=== PATIENT | male | born 1975 | race Caucasian/White ===

== ENCOUNTER 2017-02-15 12:10 | Emergency (ER) | payer OTHER ==
--- NOTE | 2017-02-15 15:28 | DIAGNOSTIC IMAGING REPORT ---
PROCEDURE: CT ABD/PELVIS WITH CONTRAST INDICATION: Right abdominal pain. Nausea. TECHNIQUE: 125 ml of Isovue 300 were injected intravenously and axial images were obtained of the entire abdomen and pelvis with sagittal and coronal reformations. COMPARISON: . FINDINGS: ABDOMEN: Gallbladder is contracted (with moderate ingested material in the stomach). Liver, spleen, pancreas, kidneys, and aorta are normal. Bowel pattern is normal, including appendix. PELVIS: Mild enlargement prostate (4.2 cm) with central dystrophic calcification). Pelvic structures are otherwise normal. No evidence of free fluid. IMPRESSION: 1. Mild enlargement prostate (incidental finding). 2. Normal appendix. 3. Otherwise negative CT abdomen and pelvis. 4. Findings discussed with ASHWIN Jc. All CT scans at this facility use dose modulation, iterative reconstruction, and/or weight-based dosing when appropriate to reduce radiation dose to as low as reasonably achievable.
--- NOTE | 2017-02-15 16:30 | ED ORDER SUMMARY ---
..... Patient: GELACIO WOODS JR OrderSheet [facility] VisitID: [id number] [place] [address] 41y, M Registration Date/Time: 02/15/2017 ORDER SHEET Weight: 99.7 kg (stated) Allergies: No Known Drug Allergy GENERAL ORDERS: CBC w Diff Urgent (13:45 02/15/2017 KKnebel R.N. per protocol) (Ack 13:46 ALawrence ER Tech1) (13:54 KKnebel R.N.) CMP Urgent (13:45 02/15/2017 KKnebel R.N. per protocol) (Ack 13:46 ALawrence ER Tech1) (13:54 KKnebel R.N.) UA-Culture if indicated Urgent (13:45 02/15/2017 KKnebel R.N. per protocol) (Ack 13:46 ALawrence ER Tech1) (13:54 KKnebel R.N.) PT with INR Urgent (13:45 02/15/2017 KKnebel R.N. per protocol) (Ack 13:46 ALawrence ER Tech1) (13:54 KKnebel R.N.) Amylase Urgent (13:45 02/15/2017 KKnebel R.N. per protocol) (Ack 13:46 ALawrence ER Tech1) (13:54 KKnebel R.N.) Lipase Urgent (13:45 02/15/2017 KKnebel R.N. per protocol) (Ack 13:46 ALawrence ER Tech1) (13:54 KKnebel R.N.) NPO (13:45 02/15/2017 KKnebel R.N. per protocol) (Ack 13:46 ALawrence ER Tech1) (13:46 ALawrence ER Tech1) CT Abd/Pel w Cont (No) (N/A) Urgent (14:33 02/15/2017 SThom A.R.N.P.) (Ack 14:34 JASENoerner) (15:11 JASENoerner) US Scrotum/Testicular (hx of R ing hernia; RLQ pain) Urgent (15:49 02/15/2017 SThom A.R.N.P.) ([facility] 15:51 Shahzad) MEDICATION ORDERS: IV FLUIDS: IV NS : initial bolus 1000 mL (1000 mL/hr), then 1000 mL/hr (NOW) (13:44 02/15/2017 KKnebel R.N. per protocol) (13:55 KKnebel R.N.) IV Saline Lock (13:45 02/15/2017 KKnebel R.N. per protocol) (13:54 KKnebel R.N.) Ketorolac IV 30 mg (NOW) (14:03 02/15/2017 SThom A.R.N.P.) (14:20 KKnebel R.N.) Zofran IV 4 mg (NOW) (14:03 02/15/2017 SThom A.R.N.P.) (14:20 KKnebel R.N.) ORDER SHEET NOTES: [Electronically signed by Landy Connelly A.R.N.P. (18:16 02/15/2017)] [Electronically signed by Gwendolyn Trevino R.N. (21:12 02/15/2017)] [Electronically locked/signed by Gwendolyn Trevino R.N. (21:12 02/15/2017)]
--- NOTE | 2017-02-15 16:30 | ED CLINICAL REPORT ---
Clinical Report - Physicians/Mid Levels [facility] [address] [place] [address] 02/15/2017 12:15 Patient: GELACIO WOODS JR Arrived- By private vehicle. Historian- patient. HISTORY OF PRESENT ILLNESS Chief Complaint: ABDOMINAL PAIN. At its maximum, severity described as 8 / 10. This started yesterday and is still present. It is described as "pain" and it is described as located in the right lower quadrant. The patient has had nausea. No diarrhea. Similar symptoms previously: None. Recent medical care: Not recently seen/assessed. REVIEW OF SYSTEMS No constipation, hematemesis, difficulty with urination, pain with urination or fever. No chest pain, cough or chills. Last bowel movement: today. PAST HISTORY See nurses notes. inguinal hernia. No history of gallstones, bowel obstruction, hypertension or diabetes mellitus. Has not had urinary calculi. Surgeries: Colonoscopy. Shoulder surgery. SOCIAL HISTORY Former smoker. Occasional alcohol use. No drug use. ADDITIONAL NOTES The nursing notes have been reviewed. PHYSICAL EXAM Vital Signs: 02/15/2017 13:38 BP: 133/74. HR: 74. RR: 16. O2 saturation: 98%. Temp: 98.2 F. Pain level now: 6/10. Have been reviewed and appear to be correct. Appearance: Alert. Oriented X3. No acute distress. Eyes: Pupils equal, round and reactive to light. Eyes normal inspection. Neck: Normal inspection. Neck supple. CVS: Normal heart rate and rhythm. Heart sounds normal. Respiratory: No respiratory distress. Breath sounds normal. Abdomen: Moderate tenderness in the right lower quadrant. No guarding, rebound tenderness or Hui's sign present. No rebound tenderness, distention or guarding. The bowel sounds are not abnormal. : Normal genitalia and genitalia. Mild right-sided and reducible hernia mass with tenderness. No urethral discharge or genital lesion. Skin: Skin warm and dry. Normal skin color. Normal skin turgor. Extremities: Extremities exhibit normal ROM. Neuro: Oriented X 3. LABS, X-RAYS, AND EKG Abdominal CT: No acute disease. Scrotal Sonogram: . There is a right inguinal hernia with a 10 mm break in the fascia. This fat-containing hernia reduces with pressure. IMPRESSION: 1. Right inguinal hernia with a 10 mm break in the fascia. Laboratory Tests: Laboratory tests have been ordered, with results reviewed and considered in the medical decision making process. UA-Culture if indicated: (FABI: 02/15/2017 13:50) ( [facility] 02/15/2017 14:41) Final results Test Result Flag Units (Reference) URINE COLOR YELLOW URINE APPEARANCE SL CLOUDY URINE GLUCOSE NEGATIVE (NEGATIVE) URINE BILIRUBIN NEGATIVE (NEGATIVE) URINE KETONE NEGATIVE (NEGATIVE) URINE SPECIFIC GRAVITY 1.020 (1.010-1.030) URINE PH 7.0 (5.0-8.0) URINE PROTEIN NEGATIVE (NEGATIVE) URINE UROBILINOGEN 1.0 EU/dL (0.2-1.0) URINE NITRITE NEGATIVE (NEGATIVE) URINE BLOOD NEGATIVE (NEGATIVE) URINE LEUK ESTERASE NEGATIVE (NEGATIVE) URINE RBC NONE SEEN rbc/hpf (0-1) URINE WBC NONE SEEN wbc/hpf (0-1) URINE EPITHELIAL CELLS NONE SEEN EPI/hpf (0-5) URINE BACTERIA NONE SEEN (NONE SEEN) URINE COMMENT CULT NOT INDICATED 3+ AMORPHOUS CRYSTALSURINE CULTURES ARE SET-UP BASED ON THE FOLLOWING CRITERIA:POSITIVE NITRITEPOSITIVE LEUKOCYTE ESTERASEGREATER THAN 10 WHITE BLOOD CELLSMODERATE (2+) OR GREATER BACTERIA CBC w Diff: (FABI: 02/15/2017 13:50) ( [facility] 02/15/2017 14:03) Final results Test Result Flag Units (Reference) WHITE BLOOD COUNT 9.9 K/uL (4.5-11.5) RED BLOOD COUNT 4.76 M/uL (4.50-5.90) HEMOGLOBIN 14.6 gm/dL (13.5-17.5) HEMATOCRIT 42.7 % (41.0-53.0) MEAN CELL VOLUME 90 fL (80-100) MEAN CORPUSCULAR HGB 31 pg (26-34) MEAN CORPUSCULAR HGB CONC 34 g/dL (31-37) RED CELL DISTRIBUTION WIDTH 13.4 % (11.6-14.8) PLATELET COUNT 338 K/uL (150-400) NEUTROPHIL % 69.0 % (50-75) LYMPH % 22.9 L % (25-40) MONO % 4.7 % (3-14) EOSINOPHIL % 2.7 % (0-4) BASOPHIL % 0.7 % (0-2) PT with INR: (FABI: 02/15/2017 13:50) ( [facility] 02/15/2017 14:44) Final results Test Result Flag Units (Reference) INR 0.9 (0.8-1.2) Low Intensity Therapy: INR 1.5-2.0 PT range 18.5-23.1Mod.Intensity Therapy: INR 2.0-3.0 PT range 23.1-31.5High Intensity Therapy: INR 2.5-3.5 PT range 27.4-35.5High Intensity Therapy 2: INR 3.0-4.0 PT range 31.5-39.3 CMP: (FABI: 02/15/2017 13:50) ( [facility] 02/15/2017 14:44) Final results Test Result Flag Units (Reference) GLUCOSE 103 mg/dL (70-110) BUN 19 H mg/dL (7-18) CREATININE 1.1 mg/dL (0.6-1.3) Estimated GFR >60 mL/min Estimated GFR- >60 mL/min Note: Persistent reduction over 3 months in eGFR<60 mL/min/1.73 m2 defines CKD. Patients with eGFR values>=60 mL/min/1.73 m2 may also have CKD if evidence ofpersistent proteinuria. Additional information may be foundat www.kidney.org. SODIUM 140 mmol/L (136-145) POTASSIUM 3.8 mmol/L (3.5-5.1) CHLORIDE 105 mmol/L (98-107) CARBON DIOXIDE 24 mmol/L (21-32) CALCIUM 8.6 mg/dL (8.5-10.1) TOTAL PROTEIN 7.2 g/dL (6.4-8.2) ALBUMIN 3.7 g/dL (3.3-5.0) BILIRUBIN, TOTAL 0.3 mg/dL (0.0-1.0) ALKALINE PHOSPHATASE 79 U/L (46-116) AST (SGOT) 24 U/L (15-37) ALT (SGPT) 49 U/L (12-78) LIPASE 99 U/L (73-393) AMYLASE 36 U/L (25-115) . PROGRESS AND PROCEDURES Course of Care: RLQ tenderness with unclear etiology. Discussed findings so far w/ pt-comfortable with discharge at this time. No peritoneal signs. Patient is stable. Patient and family counseled in person regarding the patient's condition, test results, diagnosis and need for follow-up. Disposition: Discharged. Condition: stable. CLINICAL IMPRESSION Acute right lower quadrant abdominal pain of unknown cause. Right inguinal hernia. No recurrent hernia, obstruction or gangrene. Amorphous crystals in urine. INSTRUCTIONS Do not work tomorrow. Drink plenty of fluids. (Although I do not have a definite answer as to the WHAT and WHY of your pain, we can be reassured that your hernia is not needing immediate surgery, that your appendix is ok, and that no evidence of serious infection. Possible causes would be stone that doesn't show up, as well as musculoskeletal pain or intestinal spasm. Return to ER if symptoms markedly worsen, you develop a fever over 100, or new symptoms come on.). Warnings: Further evaluation is necessary. GENERAL WARNINGS: Return or contact your physician immediately if your condition worsens or changes unexpectedly, if not improving as expected, or if other problems arise. Prescription Medications: Flomax 0.4 mg: take 1 orally every 24 hours. Take dose every day 30 minutes after the same meal. Dispense ten (10). No refills. Follow-up: Follow up with your doctor in about one week. Understanding of the discharge instructions verbalized by patient. Follow-up with: Rudi Rossi MD, General Surgeon, , [facility], [address] [place] [address] Follow up even if well. Call for the next available appointment. (Electronically signed by Landy Connelly A.R.N.P. 02/15/2017 18:16)
--- NOTE | 2017-02-15 16:30 | ED CLINICAL REPORT ---
Clinical Report - Physicians/Mid Levels [facility] [address] [place] [address] 02/15/2017 12:15 Patient: GELACIO WOODS JR Arrived- By private vehicle. Historian- patient. HISTORY OF PRESENT ILLNESS Chief Complaint: ABDOMINAL PAIN. At its maximum, severity described as 8 / 10. This started yesterday and is still present. It is described as "pain" and it is described as located in the right lower quadrant. The patient has had nausea. No diarrhea. Similar symptoms previously: None. Recent medical care: Not recently seen/assessed. REVIEW OF SYSTEMS No constipation, hematemesis, difficulty with urination, pain with urination or fever. No chest pain, cough or chills. Last bowel movement: today. PAST HISTORY See nurses notes. inguinal hernia. No history of gallstones, bowel obstruction, hypertension or diabetes mellitus. Has not had urinary calculi. Surgeries: Colonoscopy. Shoulder surgery. SOCIAL HISTORY Former smoker. Occasional alcohol use. No drug use. ADDITIONAL NOTES The nursing notes have been reviewed. PHYSICAL EXAM Vital Signs: 02/15/2017 13:38 BP: 133/74. HR: 74. RR: 16. O2 saturation: 98%. Temp: 98.2 F. Pain level now: 6/10. Have been reviewed and appear to be correct. Appearance: Alert. Oriented X3. No acute distress. Eyes: Pupils equal, round and reactive to light. Eyes normal inspection. Neck: Normal inspection. Neck supple. CVS: Normal heart rate and rhythm. Heart sounds normal. Respiratory: No respiratory distress. Breath sounds normal. Abdomen: Moderate tenderness in the right lower quadrant. No guarding, rebound tenderness or Hui's sign present. No rebound tenderness, distention or guarding. The bowel sounds are not abnormal. : Normal genitalia and genitalia. Mild right-sided and reducible hernia mass with tenderness. No urethral discharge or genital lesion. Skin: Skin warm and dry. Normal skin color. Normal skin turgor. Extremities: Extremities exhibit normal ROM. Neuro: Oriented X 3. LABS, X-RAYS, AND EKG Abdominal CT: No acute disease. Scrotal Sonogram: . There is a right inguinal hernia with a 10 mm break in the fascia. This fat-containing hernia reduces with pressure. IMPRESSION: 1. Right inguinal hernia with a 10 mm break in the fascia. Laboratory Tests: Laboratory tests have been ordered, with results reviewed and considered in the medical decision making process. UA-Culture if indicated: (FABI: 02/15/2017 13:50) ( [facility] 02/15/2017 14:41) Final results Test Result Flag Units (Reference) URINE COLOR YELLOW URINE APPEARANCE SL CLOUDY URINE GLUCOSE NEGATIVE (NEGATIVE) URINE BILIRUBIN NEGATIVE (NEGATIVE) URINE KETONE NEGATIVE (NEGATIVE) URINE SPECIFIC GRAVITY 1.020 (1.010-1.030) URINE PH 7.0 (5.0-8.0) URINE PROTEIN NEGATIVE (NEGATIVE) URINE UROBILINOGEN 1.0 EU/dL (0.2-1.0) URINE NITRITE NEGATIVE (NEGATIVE) URINE BLOOD NEGATIVE (NEGATIVE) URINE LEUK ESTERASE NEGATIVE (NEGATIVE) URINE RBC NONE SEEN rbc/hpf (0-1) URINE WBC NONE SEEN wbc/hpf (0-1) URINE EPITHELIAL CELLS NONE SEEN EPI/hpf (0-5) URINE BACTERIA NONE SEEN (NONE SEEN) URINE COMMENT CULT NOT INDICATED 3+ AMORPHOUS CRYSTALSURINE CULTURES ARE SET-UP BASED ON THE FOLLOWING CRITERIA:POSITIVE NITRITEPOSITIVE LEUKOCYTE ESTERASEGREATER THAN 10 WHITE BLOOD CELLSMODERATE (2+) OR GREATER BACTERIA CBC w Diff: (FABI: 02/15/2017 13:50) ( [facility] 02/15/2017 14:03) Final results Test Result Flag Units (Reference) WHITE BLOOD COUNT 9.9 K/uL (4.5-11.5) RED BLOOD COUNT 4.76 M/uL (4.50-5.90) HEMOGLOBIN 14.6 gm/dL (13.5-17.5) HEMATOCRIT 42.7 % (41.0-53.0) MEAN CELL VOLUME 90 fL (80-100) MEAN CORPUSCULAR HGB 31 pg (26-34) MEAN CORPUSCULAR HGB CONC 34 g/dL (31-37) RED CELL DISTRIBUTION WIDTH 13.4 % (11.6-14.8) PLATELET COUNT 338 K/uL (150-400) NEUTROPHIL % 69.0 % (50-75) LYMPH % 22.9 L % (25-40) MONO % 4.7 % (3-14) EOSINOPHIL % 2.7 % (0-4) BASOPHIL % 0.7 % (0-2) PT with INR: (FABI: 02/15/2017 13:50) ( [facility] 02/15/2017 14:44) Final results Test Result Flag Units (Reference) INR 0.9 (0.8-1.2) Low Intensity Therapy: INR 1.5-2.0 PT range 18.5-23.1Mod.Intensity Therapy: INR 2.0-3.0 PT range 23.1-31.5High Intensity Therapy: INR 2.5-3.5 PT range 27.4-35.5High Intensity Therapy 2: INR 3.0-4.0 PT range 31.5-39.3 CMP: (FABI: 02/15/2017 13:50) ( [facility] 02/15/2017 14:44) Final results Test Result Flag Units (Reference) GLUCOSE 103 mg/dL (70-110) BUN 19 H mg/dL (7-18) CREATININE 1.1 mg/dL (0.6-1.3) Estimated GFR >60 mL/min Estimated GFR- >60 mL/min Note: Persistent reduction over 3 months in eGFR<60 mL/min/1.73 m2 defines CKD. Patients with eGFR values>=60 mL/min/1.73 m2 may also have CKD if evidence ofpersistent proteinuria. Additional information may be foundat www.kidney.org. SODIUM 140 mmol/L (136-145) POTASSIUM 3.8 mmol/L (3.5-5.1) CHLORIDE 105 mmol/L (98-107) CARBON DIOXIDE 24 mmol/L (21-32) CALCIUM 8.6 mg/dL (8.5-10.1) TOTAL PROTEIN 7.2 g/dL (6.4-8.2) ALBUMIN 3.7 g/dL (3.3-5.0) BILIRUBIN, TOTAL 0.3 mg/dL (0.0-1.0) ALKALINE PHOSPHATASE 79 U/L (46-116) AST (SGOT) 24 U/L (15-37) ALT (SGPT) 49 U/L (12-78) LIPASE 99 U/L (73-393) AMYLASE 36 U/L (25-115) . PROGRESS AND PROCEDURES Course of Care: RLQ tenderness with unclear etiology. Discussed findings so far w/ pt-comfortable with discharge at this time. No peritoneal signs. Patient is stable. Patient and family counseled in person regarding the patient's condition, test results, diagnosis and need for follow-up. Disposition: Discharged. Condition: stable. CLINICAL IMPRESSION Acute right lower quadrant abdominal pain of unknown cause. Right inguinal hernia. No recurrent hernia, obstruction or gangrene. Amorphous crystals in urine. INSTRUCTIONS Do not work tomorrow. Drink plenty of fluids. (Although I do not have a definite answer as to the WHAT and WHY of your pain, we can be reassured that your hernia is not needing immediate surgery, that your appendix is ok, and that no evidence of serious infection. Possible causes would be stone that doesn't show up, as well as musculoskeletal pain or intestinal spasm. Return to ER if symptoms markedly worsen, you develop a fever over 100, or new symptoms come on.). Warnings: Further evaluation is necessary. GENERAL WARNINGS: Return or contact your physician immediately if your condition worsens or changes unexpectedly, if not improving as expected, or if other problems arise. Prescription Medications: Flomax 0.4 mg: take 1 orally every 24 hours. Take dose every day 30 minutes after the same meal. Dispense ten (10). No refills. Follow-up: Follow up with your doctor in about one week. Understanding of the discharge instructions verbalized by patient. Follow-up with: Rudi Rossi MD, General Surgeon, , [facility], [address] [place] [address] Follow up even if well. Call for the next available appointment. (Electronically signed by Landy Connelly A.R.N.P. 02/15/2017 18:16)
--- NOTE | 2017-02-15 16:30 | ED ORDER SUMMARY ---
..... Patient: GELACIO WOODS JR OrderSheet [facility] VisitID: [id number] [place] [address] 41y, M Registration Date/Time: 02/15/2017 ORDER SHEET Weight: 99.7 kg (stated) Allergies: No Known Drug Allergy GENERAL ORDERS: CBC w Diff Urgent (13:45 02/15/2017 KKnebel R.N. per protocol) (Ack 13:46 ALawrence ER Tech1) (13:54 KKnebel R.N.) CMP Urgent (13:45 02/15/2017 KKnebel R.N. per protocol) (Ack 13:46 ALawrence ER Tech1) (13:54 KKnebel R.N.) UA-Culture if indicated Urgent (13:45 02/15/2017 KKnebel R.N. per protocol) (Ack 13:46 ALawrence ER Tech1) (13:54 KKnebel R.N.) PT with INR Urgent (13:45 02/15/2017 KKnebel R.N. per protocol) (Ack 13:46 ALawrence ER Tech1) (13:54 KKnebel R.N.) Amylase Urgent (13:45 02/15/2017 KKnebel R.N. per protocol) (Ack 13:46 ALawrence ER Tech1) (13:54 KKnebel R.N.) Lipase Urgent (13:45 02/15/2017 KKnebel R.N. per protocol) (Ack 13:46 ALawrence ER Tech1) (13:54 KKnebel R.N.) NPO (13:45 02/15/2017 KKnebel R.N. per protocol) (Ack 13:46 ALawrence ER Tech1) (13:46 ALawrence ER Tech1) CT Abd/Pel w Cont (No) (N/A) Urgent (14:33 02/15/2017 SThom A.R.N.P.) (Ack 14:34 JASENoerner) (15:11 JASENoerner) US Scrotum/Testicular (hx of R ing hernia; RLQ pain) Urgent (15:49 02/15/2017 SThom A.R.N.P.) ([facility] 15:51 Shahzad) MEDICATION ORDERS: IV FLUIDS: IV NS : initial bolus 1000 mL (1000 mL/hr), then 1000 mL/hr (NOW) (13:44 02/15/2017 KKnebel R.N. per protocol) (13:55 KKnebel R.N.) IV Saline Lock (13:45 02/15/2017 KKnebel R.N. per protocol) (13:54 KKnebel R.N.) Ketorolac IV 30 mg (NOW) (14:03 02/15/2017 SThom A.R.N.P.) (14:20 KKnebel R.N.) Zofran IV 4 mg (NOW) (14:03 02/15/2017 SThom A.R.N.P.) (14:20 KKnebel R.N.) ORDER SHEET NOTES: [Electronically signed by Landy Connelly A.R.N.P. (18:16 02/15/2017)] [Electronically signed by Gwendolyn Trevino R.N. (21:12 02/15/2017)] [Electronically locked/signed by Gwendolyn Trevino R.N. (21:12 02/15/2017)]
--- NOTE | 2017-02-15 16:30 | ED NURSING NOTES ---
Clinical Report - Nurses [facility] [place] [address] 02/15/2017 12:15 Patient: GELACIO WOODS JR TRIAGE Triage time 12:27. Acuity: LEVEL 3. Chief Complaint: ABDOMINAL PAIN and NAUSEA. Alert. No acute distress. MARIS COMA SCORE: [place] Coma Scale: 15- eyes open spontaneously (4); best verbal response- oriented x 4 (5); best motor response- obeys commands (6). --12:35 Beverley Cali R.N. 12:27 02/15/17. BP: 128/91. HR: 84. RR: 16. O2 saturation: 99% on room air. Temp: 98.5 F (oral). Pain level now: 0/10. --12:35 Beverley Cali R.N. Weight: 99.7 kg stated. Height/Length: 66 inches. BMI: 35.5. --12:31 Beverley Cali R.N. Medications None. --12:29 Beverley Cali R.N. Medication/allergy information source: the patient. --12:35 Beverley Cali R.N. Allergies No Known Drug Allergy. --12:29 Beverley Cali R.N. History Arrived by private vehicle. Historian: patient. Accompanied by family. Primary physician (Octavio's office). This started yesterday. Describes the quality as dull and ( intermittent). Relates location as in the right lower quadrant. Notes pain level as 0/10 on arrival and 6/10 at maximum. Reports last BM was today. Last oral intake by patient was (eat-0600; drink-1145). SOCIAL HX: Former smoker. Occasional alcohol use. No drug use. FALL RISK ASSESSMENT: Fall risk assessment completed. No fall risk identified. FUNCTIONAL ASSESSMENT: Functional assessment: no impairments noted. LEARNING NEEDS ASSESSMENT: The learning needs assessment revealed no barriers. --12:35 Beverley Cali R.N. PROBLEMS: no known problems. ADDITIONAL SURGERIES: Colonoscopy. Shoulder Surgery. --12:30 Beverley Cali R.N. Assessment GENERAL / NEURO / PSYCH: Alert. Oriented X 4. Appears in no acute distress. Patient appears calm and cooperative. RESPIRATORY: Respirations not labored. SKIN: Skin is warm and dry. --12:35 Beverley Cali R.N. Interventions <<STRICKEN ENTRY-- ID band on patient. To treatment room. --12:35 Beverley Cali R.N. --END STRIKE>> Correction --12:35 Beverley Cali R.N. ID band on patient. To waiting room. --12:35 Beverley Cali R.N. PHYSICAL ASSESSMENT Ambulatory to room. GENERAL / NEURO / PSYCH: Alert. Oriented X 4. Appears in pain. RESPIRATORY: Respirations not labored. CVS: Capillary refill less than 2 seconds. GI / : Abdomen soft. Abdominal tenderness in the right lower quadrant. SKIN: Skin is warm and dry. --13:42 Gwendolyn Trevino R.N. NURSING PROGRESS NOTES Pulse oximeter and NIBP monitor placed on patient; monitor alarms on. Patient gowned. Head of bed elevated. Patient identifiers checked. Call light placed in reach. Side rails up x 1. Bed placed in lowest position. Brakes of bed on. --13:43 Gwendolyn Trevino R.N. 13:38 02/15/17. BP: 133/74. HR: 74. RR: 16. O2 saturation: 98%. Temp: 98.2 F. Pain level now: 03/04. --13:43 Gwendolyn Trevino R.N. 13:54 02/15/2017 Site #1 started via IV in the right forearm with an 20g angiocath, with aseptic technique and good blood return; one attempt. Blood drawn: rainbow set. Labeled in the presence of the patient and sent to the lab. Saline lock flushed with 10 mL saline. --13:54 Gwendolyn Trevino R.N. 13:55 02/15/2017 Started bag #1 1000 mL IV Fluids IV NS (Saline); bolus of 1000 mL over 1 hour(s) via site #1. Allergies verified and confirmed 5 rights. IV patency established. IV site checked: no pain, redness, or swelling. IV flushed thoroughly pre- and post-medication administration. --13:55 Gwendolyn Trevino R.N. 14:20 02/15/2017 Ketorolac IVP 30 mg given over 2 minute(s) via site #1. Allergies verified and confirmed 5 rights. IV patency established. IV site checked: no pain, redness, or swelling. IV flushed thoroughly pre- and post-medication administration. IVP given by RN. --14:20 Gwendolyn Trevino R.N. 14:20 02/15/2017 Zofran (Ondansetron HCl) IVP 4 mg given over 2 minute(s) via site #1. Allergies verified and confirmed 5 rights. IV patency established. IV site checked: no pain, redness, or swelling. IV flushed thoroughly pre- and post-medication administration. IVP given by RN. --14:20 Gwendolyn Trevino R.N. 15:41 02/15/2017 IV Fluids IV NS Discontinued: bag #1 infused. Total amount infused: 1000 mL. --15:41 Gwendolyn Trevino R.N. Reassessment after oxygen administered and medication administered. He is calm and resting quietly. Overall patient status is the same- he states feels better. GI / : The patient reports abdominal pain located in the LLQ. Denies nausea. Abdomen soft. --15:41 Gwendolyn Trevino R.N. 15:40 02/15/17. BP: 123/62. HR: 66. RR: 16. O2 saturation: 98%. Pain level now: 01/02. --15:41 Gwendolyn Trevino R.N. 16:39 02/15/17. BP: 126/78. HR: 60. RR: 16. O2 saturation: 98%. Pain level now: 01/02. --16:40 Gwendolyn Trevino R.N. DISPOSITION / DISCHARGE 16:37 02/15/17. BP: 128/78. HR: 60. RR: 16. O2 saturation: 96%. Pain level now: 01/02. --16:39 Gwendolyn Trevino R.N. Departure time: 16:41 Feb 15 2017. Condition at departure: unchanged. No learning barriers present. Discharge instructions provided and reviewed with the patient. Reviewed medication(s) side effects, precautions, dosing and course information. Prescription(s) given to the patient. Reviewed referral to a primary care physician for followup. Patient verbalized understanding. Written instructions provided in [place]. The patient was discharged home and accompanied by spouse. He left the Emergency Department ambulatory and via private vehicle. Spouse driving. FALL RISK ASSESSMENT: Fall risk assessment completed. No fall risk identified. --16:41 Gwendolyn Trevino R.N. Locked/Released at 02/15/2017 21:12 by Gwendolyn Trevino R.N.
--- NOTE | 2017-02-15 16:39 | DIAGNOSTIC IMAGING REPORT ---
PROCEDURE: US SCROTUM/TESTICLE INDICATION: SCROTAL PAIN TECHNIQUE: Simental scale and color Doppler sonographic images through the right inguinal area were obtained. COMPARISON: None. FINDINGS: There is a right inguinal hernia with a 10 mm break in the fascia. This fat-containing hernia reduces with pressure. IMPRESSION: 1. Right inguinal hernia with a 10 mm break in the fascia.
--- NOTE | 2017-02-15 21:12 | ED DISCHARGE INSTRUCTIONS ---
Patient: GELACIO WOODS JR General Instructions [facility] VisitID: [id number] [place] [address] 41y, M Registration Date/Time: 02/15/2017 Acute right lower quadrant abdominal pain of unknown cause. Right inguinal hernia. No recurrent hernia, obstruction or gangrene. Amorphous crystals in urine. INSTRUCTIONS Do not work tomorrow. Drink plenty of fluids. (Although I do not have a definite answer as to the WHAT and WHY of your pain, we can be reassured that your hernia is not needing immediate surgery, that your appendix is ok, and that no evidence of serious infection. Possible causes would be stone that doesn't show up, as well as musculoskeletal pain or intestinal spasm. Return to ER if symptoms markedly worsen, you develop a fever over 100, or new symptoms come on.). Warnings: Further evaluation is necessary. GENERAL WARNINGS: Return or contact your physician immediately if your condition worsens or changes unexpectedly, if not improving as expected, or if other problems arise. Prescription Medications: Flomax 0.4 mg: take 1 orally every 24 hours. Take dose every day 30 minutes after the same meal. Dispense ten (10). No refills. Follow-up: Follow up with your doctor in about one week. Understanding of the discharge instructions verbalized by patient. Follow-up with: Rudi Rossi MD, General Surgeon, , [facility], [address] [place] [address] Follow up even if well. Call for the next available appointment. ADDITIONAL INFORMATION Abdominal Pain,Uncertain Cause [Male] Based on your visit today, the exact cause of your abdominalpain is not clear. Your exam and tests do not indicate a dangerous cause at this time. However, the signs of a serious problem may take more time to appear. Although your evaluation was reassuring today, sometimes early in the course of many conditions, exam and lab tests can appear normal. Therefore, it is important for you to watch for any new symptoms or worsening of your condition. Causes It may not be obvious what caused your symptoms. Pay attention to things that do seem to make your symptoms worse or better and discuss this with your doctor when you follow up. Diagnosis The evaluation of abdominal pain in the emergency department may onlyrequire an exam by the doctor or it may include blood, urine or imaging studies, depending on many factors. Sometimes exams and tests can identify a cause but in many cases, a clear cause is not found. Further testing at follow up visits may help to suggest a clear diagnosis. Home Care Rest as much as possible until your next exam. Try to avoid any medications (unless otherwise directed by your doctor), foods, activities, or other factors that you may have contributed to your symptoms. Try to eat foods that you know that you have tolerated well in the past. Certain diets may be recommended for some conditions that cause abdominal pain. However, since the cause of your symptoms may not be clear, discuss your diet more with your primary care provider or specialist for further recommendations. Eating several small meals per day as opposed to 2 or 3 larger meals may help. Monitor closely for anything that may make your symptoms worse or better. Pay close attention to symptoms below that may indicate worsening of your condition. Follow Up and Precautions See your doctoras instructed or sooneror if your symptoms are not improving.In some cases, you may need more testing. When to Seek Medical Attention Contact your doctor or see medical attention ifany of the following occur: Pain is becoming worse You are unable to take your medications due to excessive vomiting Swelling of the abdomen Fever of 100.4F (38C) or higher, or as directed by your health care provider Blood in vomit or bowel movements (dark red or black color) Jaundice (yellow color of eyes and skin) New onset of weakness, dizziness or fainting New onset of chest, arm, back, neck or jaw pain Hernia [Adult] A hernia is a bulge of the intestines or surrounding tissues through a tear in the muscle of the abdomen or groin. This may occur as a result of excessive coughing, heavy lifting or being overweight. It can also occur at the site of prior surgery. When a hernia first appears it may be painful due to stretching and tearing of the muscle fibers. When you lie down, the bulge should reduce in size or disappear completely. If it does not, and you are unable to flatten it with your hand, medical attention is needed at once. Home Care: Avoid heavy lifting and straining or any activities that cause pain in the hernia. Follow Up with your physician as directed by our staff. Get Prompt Medical Attention if any of the following occur: Increasing size of the hernia Increasing pain in the hernia A hernia that does not get smaller when you lie down Hardening of the hernia Abdominal swelling, fever or repeated vomiting Pain moves to the lower right abdomen (just below the waistline) or spreads to the back You have been given the following additional information: Abdominal Pain, Unknown Cause, (Male) Hernia (Inguinal, Ventral, Umbilical) Do not work tomorrow. (Electronically signed by Landy Connelly A.R.N.P. 02/15/2017 18:16)
--- NOTE | 2017-02-15 21:12 | ED MAR SUMMARY ---
..... Medication Administration Record [facility] [address] [place] [address] Patient: GELACIO WOODS Visit ID: [id number] 41y, M Weight: 99.7 kg Height/Length: 66 in BMI: 35.5 ALLERGIES: No Known Drug Allergy Start 13:55 02/15/2017 Gwendolyn Trevino R.N., Stop 15:41 02/15/2017 Gwendolyn Trevino R.N. Medication Administered: IV NS (SALINE), Dose: IV Fluids, Bolus: 1000 mL over 1 hour(s), Dispensed: 1000 mL bag, Site: #1 right forearm. Medication Ordered: IV NS : initial bolus 1000 mL (1000 mL/hr), then 1000 mL/hr (NOW). Given 14:20 02/15/2017 Gwendolyn Trevino R.N. Medication Administered: KETOROLAC [IVP], Dose: 30 mg IVP over 2 minute(s), Site: #1 right forearm. Medication Ordered: Ketorolac IV 30 mg (NOW). Given 14:20 02/15/2017 Gwendolyn Trevino R.N. Medication Administered: ZOFRAN [IVP] (ONDANSETRON HCL), Dose: 4 mg IVP over 2 minute(s), Site: #1 right forearm. Medication Ordered: Zofran IV 4 mg (NOW).
--- NOTE | 2017-02-15 21:12 | ED MAR SUMMARY ---
..... Medication Administration Record Located Within [facility] [address] [place] [address] Patient: GELACIO WOODS Visit ID: [id number] 41y, M Weight: 99.7 kg Height/Length: 66 in BMI: 35.5 ALLERGIES: No Known Drug Allergy Start 13:55 02/15/2017 Gwendolyn Trevino R.N., Stop 15:41 02/15/2017 Gwendolyn Trevino R.N. Medication Administered: IV NS (SALINE), Dose: IV Fluids, Bolus: 1000 mL over 1 hour(s), Dispensed: 1000 mL bag, Site: #1 right forearm. Medication Ordered: IV NS : initial bolus 1000 mL (1000 mL/hr), then 1000 mL/hr (NOW). Given 14:20 02/15/2017 Gwendolyn Trevino R.N. Medication Administered: KETOROLAC [IVP], Dose: 30 mg IVP over 2 minute(s), Site: #1 right forearm. Medication Ordered: Ketorolac IV 30 mg (NOW). Given 14:20 02/15/2017 Gwendolyn Trevino R.N. Medication Administered: ZOFRAN [IVP] (ONDANSETRON HCL), Dose: 4 mg IVP over 2 minute(s), Site: #1 right forearm. Medication Ordered: Zofran IV 4 mg (NOW).
--- NOTE | 2017-02-15 21:12 | ED MED RECONCILIATION SUMMARY ---
Patient: PEGGY GELACIO Ceja JR Medication Reconciliation Report [facility] VisitID: [id number] [address] [place] [address] 41y, M Registration Date/Time: 02/15/2017 Weight: 99.7 kg Height/Length: 66 in. BMI: 35.5 ALLERGIES: No Known Drug Allergy The patient's Home Medications are listed below: NONE. The source(s) of the original Home Medication information: patient The following Medications were given to the patient in the Emergency Department: IV NS IV Fluids bolus 1000 mL over 1 hour(s), administered: 02/15/2017 1:55:00 PM Ketorolac [IVP] IVP 30 mg, administered: 02/15/2017 2:20:00 PM Zofran [IVP] IVP 4 mg, administered: 02/15/2017 2:20:00 PM The following Medications were prescribed to the patient: Flomax 0.4 mg: take 1 orally every 24 hours. Take dose every day 30 minutes after the same meal. Dispense ten (10). No refills. -- Landy Connelly A.R.N.P.
--- NOTE | 2017-02-15 21:12 | ED MED RECONCILIATION SUMMARY ---
Patient: PEGGY GELACIO Ceja JR Medication Reconciliation Report [facility] VisitID: [id number] [address] [place] [address] 41y, M Registration Date/Time: 02/15/2017 Weight: 99.7 kg Height/Length: 66 in. BMI: 35.5 ALLERGIES: No Known Drug Allergy The patient's Home Medications are listed below: NONE. The source(s) of the original Home Medication information: patient The following Medications were given to the patient in the Emergency Department: IV NS IV Fluids bolus 1000 mL over 1 hour(s), administered: 02/15/2017 1:55:00 PM Ketorolac [IVP] IVP 30 mg, administered: 02/15/2017 2:20:00 PM Zofran [IVP] IVP 4 mg, administered: 02/15/2017 2:20:00 PM The following Medications were prescribed to the patient: Flomax 0.4 mg: take 1 orally every 24 hours. Take dose every day 30 minutes after the same meal. Dispense ten (10). No refills. -- Landy Connelly A.R.N.P.
== END 2017-02-15 16:45 | disposition home or self-care (01) ==
LOC: ED SRH 12:10
DX: K40.90 Unilateral inguinal hernia, without obstruction or gangrene, not specified as recurrent (principal); R10.31 Right lower quadrant pain; R82.99 Other abnormal findings in urine
CPT/HCPCS: 90004; 90100; 92235; 92530; 94060; 95059

== ENCOUNTER 2017-03-14 15:20 | Outpatient (CLI) | payer OTHER ==
--- NOTE | 2017-03-14 16:11 | DIAGNOSTIC IMAGING REPORT ---
PROCEDURE: XR ANKLE 3 OR 4 VIEWS - LEFT INDICATION: ANKLE PAIN, HERNIA, INGUINAL TECHNIQUE: Four views. COMPARISON: None. FINDINGS: Osseous structures and joint spaces are normal. IMPRESSION: 1. Normal left ankle.
== END 2017-03-14 23:00 | disposition home or self-care (01) ==
LOC: XR SRH 15:20
DX: M25.572 Pain in left ankle and joints of left foot (principal); K40.90 Unilateral inguinal hernia, without obstruction or gangrene, not specified as recurrent